=== PATIENT | female | born 1990 | race Caucasian/White ===

== ENCOUNTER 2017-01-21 00:57 | Emergency (ER) | payer SELFPAY ==
[~2017-01-21] VITALS: Ht 157.5 cm; Wt 44.5 kg
[2017-01-21 01:00] VITALS: BP 147/95
== END 2017-01-21 03:00 | disposition left against medical advice (07) ==
LOC: ER 02:53
DX: Z53.21 Procedure and treatment not carried out due to patient leaving prior to being seen by health care provider (principal)

== ENCOUNTER 2018-08-22 20:27 | Emergency (ER) | payer MEDICAID | END 2018-08-22 21:27 | disposition left against medical advice (07) | LOC: ER 20:55 | DX: R05 Cough (principal); R21 Rash and other nonspecific skin eruption; Z53.21 Procedure and treatment not carried out due to patient leaving prior to being seen by health care provider ==